=== PATIENT | female | born 1975 | race Caucasian/White ===

== ENCOUNTER → 2023-06-06 | Outpatient (CLI) | payer BC, SELFPAY ==
--- NOTE | 2023-06-06 07:16 | NM_ITS ---
CLINICAL: Female, 47 years old. SPINAL STENOSIS, LEFT SIDED PAIN AND SCIATICA -- L5 LEFT STRESS FX SEEN ON MRI DONE REMOTELY -- PLEASE PAY PARTICULAR ATTN TO L5 PER DR NICHOLSON WHOLE BODY NUCLEAR BONE SCAN TECHNIQUE: Following the IV administration of 26 mCi of Tc MDP, whole body bone imaging was performed with a gamma camera following a three hour delay. COMPARISON STUDIES : NM - None. CR - Not available for review at this time. CT - Not available for review at this time. MR - Not available for review at this time. US - Not available for review at this time. FINDINGS: Increased radiopharmaceutical uptake at the level of the L5 vertebrae slightly more prominent on the left side. NM/Bone Scan Whole Body IMPRESSION: Increased radiopharmaceutical uptake at the level the L5 vertebrae more prominent on the left side of the midline. This corresponds to the findings on prior MRI of the lumbar spine. Electronically Signed: Blane Whitehead MD at 14:58 EDT ,
== END | disposition home or self-care (01) ==
PROVIDERS: PCP Student in an Organized Health Care Education/Training Program; Referring Provider Orthopaedic Surgery; Visit Provider Orthopaedic Surgery
DX: M48.061 Spinal stenosis, lumbar region without neurogenic claudication (principal)
CPT/HCPCS: 78306; A9503